=== PATIENT | female | born 1965 | race Caucasian/White ===

== ENCOUNTER 2016-09-17 04:55 | Emergency (ER) | payer BC ==
[~2016-09-17] VITALS: Ht 165.1 cm; Wt 68.0 kg
[2016-09-17 04:58] VITALS: Ht 165.1 cm; Wt 68.0 kg
[2016-09-17] MEDS ORDERED: SODIUM CHLORIDE 0.9% 1L BAG IV* STA (05:03)
[2016-09-17] MEDS ORDERED: ACETAMINOPHEN 325 MG TAB PO STA (05:03)
[2016-09-17] MEDS ORDERED: ONDANSETRON 4 MG INJ ONE (05:16)
[2016-09-17] MEDS ORDERED: ONDANSETRON 4 MG INJ IV STA ×2 (05:20→07:27)
[2016-09-17] MEDS ORDERED: FAMOTIDINE 20 MG INJ IV STA (05:20)
[2016-09-17 05:28] LABS: ADD UMIC YES; URINE BILIRUBIN (Dip) NEGATIVE (NEGATIVE); URINE BLOOD (Dip) 1+ (NEGATIVE); URINE COLOR LT. YELLOW (YELLOW); URINE GLUCOSE (Dip) NEGATIVE (NEGATIVE); URINE KETONES (Dip) 40 (NEGATIVE); URINE LEUKOCYTE ESTERASE (Dip) TRACE (NEGATIVE); URINE NITRITE (Dip) NEGATIVE (NEGATIVE); URINE TOTAL PROTEIN (Dip) 1+ (NEGATIVE); URINE UROBILINOGEN (Dip) 0.2 E.U./dL (0.1-1.0)
[2016-09-17] MEDS ORDERED: AL HYDROX/MG HYDROX/SIMETH 30 ML CUP PO ONE (05:30)
[2016-09-17 06:08] LABS: HEMATOCRIT 42.2 % (37.0-47.0); HEMOGLOBIN 14.1 g/dl (12.0-16.0); LYMPHOCYTES # 0.4 10^3/ul (0.8-2.9); LYMPHOCYTES % 4.3 % (15.0-51.0); MEAN CORPUSCULAR HEMOGLOBIN 29.1 pg (29.0-33.0); MEAN CORPUSCULAR HGB CONC 33.5 g/dl (32.0-37.0); MEAN PLATELET VOLUME 9.8 fl (7.4-10.4); MONOCYTE # 0.4 10^3/ul (0.3-0.9); MONOCYTES % 4.3 % (0.0-11.0); NEUTROPHIL # 8.4 10^3/ul (1.6-7.5); NEUTROPHILS % 91.4 % (39.0-77.0); PLATELET COUNT 149 10^3/UL (140-440); RED BLOOD COUNT 4.85 10^6/ul (4.20-5.40); RED CELL DISTRIBUTION WIDTH 13.4 % (11.5-14.5); UNCORRECTED WBC 9.2 10^3/ul (4.8-10.8); WHITE BLOOD COUNT 9.2 10^3/ul (4.8-10.8)
[2016-09-17 06:11] LABS: INR 1.01; PARTIAL THROMBOPLASTIN TIME 28.8 Sec (25.0-35.0); PROTIME 13.3 Sec (12.2-14.2)
[2016-09-17 06:12] LABS: ALBUMIN 4.5 g/dl (3.3-4.9); CHLORIDE 101 mmol/L (97-110); POTASSIUM 3.8 mmol/L (3.5-5.1); SODIUM 143 mmol/L (135-144)
[2016-09-17 06:14] LABS: BILIRUBIN,INDIRECT 0.3 mg/dl (0-1.1); BILIRUBIN,TOTAL 0.3 mg/dl (0.2-1.3)
[2016-09-17 06:15] LABS: ALANINE AMINOTRANSFERASE 24 IU/L (13-69); ALBUMIN/GLOBULIN RATIO 1.25; ALKALINE PHOSPHATASE 102 IU/L (42-121); ANION GAP 20 (8-16); ASPARTATE AMINO TRANSFERASE 29 IU/L (15-46); BLOOD UREA NITROGEN 15 mg/dl (7-20); CALCIUM 9.2 mg/dl (8.4-10.2); CARBON DIOXIDE 26 mmol/L (21-31); GLUCOSE 119 mg/dl (70-220); TOTAL PROTEIN 8.1 g/dl (6.1-8.1)
[2016-09-17 06:18] LABS: BACTERIA,URINE FEW; URINE RBCS 0-2 /HPF (0)
[2016-09-17 06:19] LABS: RENAL EPITHELIAL CELLS,URINE OCCASIONAL
--- NOTE | 2016-09-17 06:19 | RADRPT ---
PROCEDURE: XR Chest. CLINICAL INDICATION: Sepsis TECHNIQUE: Portable single view of the chest COMPARISON: None. FINDINGS: The cardiomediastinal silhouette appears within normal limits. The lungs are clear and no pleural e ffusion or significant edema is seen. No bony abnormality is seen. IMPRESSION: No definite acute pulmonary disease. RPTAT: [facility] Tessy Nino Physician Date Time Electronically viewed and signed by Tessy Nino, Physician on 09/17/2016 06:18 LE/
[2016-09-17 06:28] LABS: TROPONIN-I < 0.012 ng/ml (0.00-0.12)
[2016-09-17 06:29] LABS: CONDITION 1; LH ANALYZER COMMENTS 1
[2016-09-17 07:20] VITALS: BP 117/70; PULSE 68; RESP 18; TEMP 100
[2016-09-17] MEDS ORDERED: morphine 4 MG/ML VIAL IV STA (07:27)
[2016-09-17] MEDS ORDERED: ONDA4TAB14 PO (07:30)
[2016-09-17] MEDS ORDERED: OSLT75C PO (07:30)
[2016-09-17] MEDS ORDERED: DICY20TA59 PO (07:30)
[2016-09-17] MEDS ORDERED: NITR-58 PO (07:34)
--- NOTE | 2016-09-17 07:34 | ERD ---
ER Documentation Chief Complaint Date/Time DATE: 09/17/16 TIME: 07:31 Chief Complaint SORE THROAT, CHILLS, EPIGASTRIC PAIN & N/V X 1 DAY. HPI This is a 50-year-old female complains onset yesterday of fever, chills, body aches, sore throat, nausea vomiting 2 was "queasy feeling". Does have a slight headache no photophobia no neck pain no cough no shortness of breath no dysuria back pain diarrhea ROS All systems reviewed and are negative except as per history of present illness. Medications Home Meds Active Scripts Dicyclomine Hcl* (Bentyl*) 20 Mg Tablet, 20 MG PO QID for abdominal cramps, #20 TAB Prov:JENNIFER BLANTON DO 09/17/16 Ondansetron (Ondansetron Odt) 4 Mg Tab.rapdis, 4 MG PO Q6H Y for NAUSEA AND/OR VOMITING, #14 TAB Prov:JENNIFER BLANTON DO 09/17/16 Oseltamivir Phosphate* (Tamiflu*) 75 Mg Capsule, 75 MG PO BID for 5 Days, CAP Prov:CLIFF BLANTONS Dalila. DO 09/17/16 Allergies Allergies: Uncoded Allergies: STEROIDS (Allergy, Unknown, 09/17/16) PMhx/Soc Medical and Surgical Hx: pt denies Medical Hx, pt denies Surgical Hx History of Surgery: No Anesthesia Reaction: No Hx Neurological Disorder: No Hx Respiratory Disorders: No Hx Cardiac Disorders: No Hx Psychiatric Problems: No Hx Miscellaneous Medical Probl: No Hx Alcohol Use: No Hx Substance Use: No Hx Tobacco Use: No Smoking Status: Never smoker FmHx Family History: No coronary disease Physical Exam Vitals Vital Signs Date Time Temp Pulse Resp B/P Pulse Ox O2 Delivery O2 Flow Rate FiO2 09/17/16 04:58 102.2 107 18 133/73 99 Physical Exam Const: Well-developed, well-nourished Head: Atraumatic, normocephalic Eyes: Normal Conjunctiva, PERRLA, EOMI, normal sclera, no nystagmus ENT: Normal External Ears, Nose and Mouth, moist mucus membranes slight tonsillar pillar erythema. Neck: Full range of motion. No meningismus, no lymphadenopathy. Resp: Clear to auscultation bilaterally, no wheezing, rhonchi, rales Cardio: Regular rate and rhythm, no murmurs, S1 S2 present Abd: Soft, non tender x 4, non distended. Normal bowel sounds, no guarding or rebound, no pulsitile abdominal masses or bruits Skin: No petechiae or rashes, no ecchymosis , no maculopapular rash Back: No midline or flank tenderness Ext: No cyanosis, or edema, FROM x 4, normal inspection, neurovascularly intact x 4 Neur: Awake and alert, STR 5/5 x 4, sensation intact x 4, no focal findings, cerebellum intact Psych: Normal Mood and Affect Result Diagram: 09/17/16 0520 09/17/16 0520 Results 24 hrs Laboratory Tests Test 09/17/16 05:00 09/17/16 05:20 Urine Bacteria FEW Urine Bilirubin NEGATIVE Urine Clarity CLEAR Urine Color LT. YELLOW Urine Epithelial Cells FEW Urine Glucose NEGATIVE% Urine Hemoglobin 1+ Urine Ketones 40 Urine Leukocyte Esterase TRACE Urine Microscopic RBC 0-2/HPF Urine Microscopic WBC 2-5/HPF Urine Nitrite NEGATIVE Urine Renal Epithelial Cells OCCASIONAL Urine Specific [place] 1.025 Urine Total Protein 1+ Urine Urobilinogen 0.2 E.U./dL Urine pH 6.0 Activated Partial Thromboplast Time 28.8Sec Alanine Aminotransferase (ALT/SGPT) 24IU/L Albumin 4.5g/dl Albumin/Globulin Ratio 1.25 Alkaline Phosphatase 102IU/L Anion Gap 20 Aspartate Amino Transf (AST/SGOT) 29IU/L Basophils # 0.010^3/ul Basophils % 0.0% Blood Urea Nitrogen 15mg/dl Calcium Level 9.2mg/dl Carbon Dioxide Level 26mmol/L Chloride Level 101mmol/L Creatinine 0.80mg/dl Direct Bilirubin 0.00mg/dl Eosinophils # 0.010^3/ul Eosinophils % 0.0% Globulin 3.60g/dl Glucose Level 119mg/dl Hematocrit 42.2% Hemoglobin 14.1g/dl INR International Normalized Ratio 1.01 Indirect Bilirubin 0.3mg/dl Lactic Acid Level 1.5mmol/L Lymphocytes # 0.410^3/ul Lymphocytes % 4.3% Mean Corpuscular Hemoglobin 29.1pg Mean Corpuscular Hemoglobin Concent 33.5g/dl Mean Corpuscular Volume 87.0fl Mean Platelet Volume 9.8fl Monocytes # 0.410^3/ul Monocytes % 4.3% Neutrophils # 8.410^3/ul Neutrophils % 91.4% Nucleated Red Blood Cells # 0.010^3/ul Nucleated Red Blood Cells % 0.0/100WBC Platelet Count 87432^3/UL Potassium Level 3.8mmol/L Prothrombin Time 13.3Sec Prothrombin Time Ratio 1.0 Red Blood Count 4.8510^6/ul Red Cell Distribution Width 13.4% Sodium Level 143mmol/L Total Bilirubin 0.3mg/dl Total Protein 8.1g/dl Troponin I < 0.012ng/ml White Blood Count 9.210^3/ul Current Medications Medications (Trade) Dose Ordered Sig/[facility] Route PRN Reason Start Time Stop Time Status Last Admin Dose Admin Sodium Chloride (NS) 2,110 ml BOLUS OVER 2 HOURS STAT IV* 09/17/16 05:03 09/17/16 05:05 DC 09/17/16 05:34 Acetaminophen (Tylenol Tab) 650 mg ONCE STAT PO 09/17/16 05:03 09/17/16 05:05 DC 09/17/16 05:35 Ondansetron HCl (Zofran Inj) 4 mg STK-MED ONCE .ROUTE 09/17/16 05:16 09/17/16 05:17 DC Ondansetron HCl (Zofran Inj) 4 mg ONCE STAT IV 09/17/16 05:20 09/17/16 05:21 DC 09/17/16 05:35 Famotidine (Pepcid Iv) 20 mg ONCE STAT IV 09/17/16 05:20 09/17/16 05:21 DC 09/17/16 05:36 Al Hydrox/Mg Hydrox/Simethicone (Mag-Al Plus) 60 ml ONCE ONCE PO 09/17/16 05:30 09/17/16 05:31 DC 09/17/16 05:35 Morphine Sulfate (morphine) 4 mg ONCE STAT IV 09/17/16 07:27 09/17/16 07:28 DC Ondansetron HCl (Zofran Inj) 4 mg ONCE STAT IV 09/17/16 07:27 09/17/16 07:28 DC Procedures/MDM PROCEDURE: XR Chest. CLINICAL INDICATION: Sepsis TECHNIQUE: Portable single view of the chest COMPARISON: None. FINDINGS: The cardiomediastinal silhouette appears within normal limits. The lungs are clear and no pleural effusion or significant edema is seen. No bony abnormality is seen. IMPRESSION: No definite acute pulmonary disease. RPTAT: [facility] Tessy Nino, Physician Date Time Electronically viewed and signed by Tessy Nino, Physician on 09/17/2016 06 :18 LE/ CC: DANTE WYNNE Patient's blood work is unremarkable. Lactate is negative. Patient likely has influenza. Treat with Tamiflu. Does have a slight UTI will cover with some Macrobid Nontoxic well-appearing, no abdominal pain EKG: Rate/Rhythm: Sinus tachycardia heart rate 101 QRS, ST, QT: NORMAL LA, QRS, QT] Impression: NORMAL EKG Departure Diagnosis: Primary Impression: Influenza Additional Impression: Urinary tract infection Urinary tract infection type: acute cystitis Hematuria presence: without hematuria Qualified Code: N30.00 - Acute cystitis without hematuria Condition: Stable Patient Instructions: Influenza (Adult) Referrals: DOCTOR,NOT ON STAFF (PCP) JENNIFER BLANTON DO Sep 17, 2016 07:34
== END 2016-09-17 08:46 | disposition home or self-care (01) ==
LOC: E/R 04:55
DX: J11.1 Influenza due to unidentified influenza virus with other respiratory manifestations (principal); N30.00 Acute cystitis without hematuria; R11.2 Nausea with vomiting, unspecified; R10.13 Epigastric pain
CPT/HCPCS: 36415; 71010; 80053; 81001; 83605; 84484; 85025; 85610; 85730; 87040; 87086; 93005; 96374; 96375; 99285; J2405; J7030; 81003